=== PATIENT | male | born 1970 | race Caucasian/White ===

== ENCOUNTER 2018-11-12 17:45 | Emergency (ER) | payer MEDICAID, OTHER ==
[2018-11-12] MEDS ORDERED: CIPROFLOXACIN HCL OTIC DROP 0.25 ML RIGHT EAR (19:00)
[2018-11-12] MEDS: CIPROFLOXACIN HCL OTIC DROP 0.25 ML RIGHT EAR (19:42)
== END 2018-11-12 19:45 | disposition home or self-care (01) ==
LOC: FTE 17:45
DX: S00.411A Abrasion of right ear, initial encounter (principal); X58.XXXA Exposure to other specified factors, initial encounter; Y92.9 Unspecified place or not applicable
CPT/HCPCS: 99283; Z7502